=== PATIENT | female | born 1975 | race Caucasian/White ===

== ENCOUNTER 2018-07-17 12:05 | Emergency (ER) | payer MEDICAID ==
--- NOTE | 2018-07-17 12:17 | Emergency Department Record ---
History of Present Illness - General Chief Complaint: Abdominal Pain Stated Complaint: ABD PAIN Time Seen by Provider: 07/17/18 12:15 Source: Patient Mode of Arrival: Ambulatory Limitations: No limitations - History of Present Illness Initial Comments: The patient is here due to AP for the last 2 days. She was blowing her nose and felt a "pop" above her umbilicus and then pain since. Now she is having more pain when she sneezes and coughs and feels a defect in her abdominal wall. The patient has had a hx of an umbilical hernia repair in the same area as a child but no other abdominal surgeries. She has had no nausea, vomiting, or diarrhea and has been moving her bowels normally. MD Complaint: Abdominal pain Onset/Timin -: Days(s) Location: Periumbilical Radiation: None Migration to: No migration Severity: Mild Severity scale (1-10): 4 Quality: Other Consistency: Constant Improves With: Nothing Worsens With: Nothing Associated Symptoms: Denies other symptoms - Related Data Previous Rx's Medication Instructions Recorded Naproxen [Naprosyn] 500 mg PO BID #14 tablet. 07/17/18 Allergies Allergy/AdvReac Type Severity Reaction Status Date / Time Penicillins Allergy Intermediate SEIZURES Verified 07/17/18 12:14 diphenhydramine HCl Allergy Mild HIVES Verified 07/17/18 12:14 [From Benadryl] Travel Screening - Travel/Exposure Within Last 30 Days Have you traveled within the last 30 days?: No Review of Systems Constitutional: Denies: Chills, Fever Eyes: Denies: Eye discharge ENT: Denies: Congestion Respiratory: Denies: Cough, Dyspnea Past Medical History - SOCIAL HISTORY Smoking Status: Never smoker Alcohol Use: Occasional Drug Use: None - RESPIRATORY Hx Respiratory Disorders: No - CARDIOVASCULAR Hx Cardio Disorders: No - NEURO Hx Neuro Disorders: No - GI Hx GI Disorders: No - Hx Genitourinary Disorders: No - ENDOCRINE Hx Endocrine Disorders: No - MUSCULOSKELETAL Hx Musculoskeletal Disorders: No - PSYCH Hx Psych Problems: Yes Hx Anxiety: Yes Hx Depression: Yes - HEMATOLOGY/ONCOLOGY Hx Hematology/Oncology Disorders: Yes Hx Anemia: Yes Family Medical History Any Significant Family History?: No Physical Exam - General General Appearance: Alert, Oriented x3, Cooperative, No acute distress - Head Head exam: Atraumatic, Normocephalic, Normal inspection - Eye Eye exam: Normal appearance, PERRL - Neck Neck exam: Normal inspection, Full ROM. negative: Tenderness - Respiratory Respiratory exam: Normal lung sounds bilaterally. negative: Respiratory distress - Cardiovascular Cardiovascular Exam: Regular rate, Normal rhythm, Normal heart sounds - GI/Abdominal GI/Abdominal exam: Soft, Hernia (There is a very mildly tender umbilical hernia just above her umbilicus. There is no strangulation or incarceration.). negative: Normal bowel sounds, Guarding, Rebound, Rigid - Extremities Extremities exam: Normal inspection, Full ROM, Normal capillary refill. negative: Tenderness Course Vital Signs 07/17/18 12:12 Temperature 97.9 F Pulse Rate 92 H Respiratory 18 Rate Blood Pressure 153/99 Pulse Ox 99 - Reevaluation(s) Reevaluation #1: The patient is doing OK after the Toradol and still does have tenderness at the umbilical hernia site. There is no palpable incarceration but there is a fascial defect. I did discuss the plan to F/U with Dr. Soriano for further evaluation. I also did discuss the case with Dr. Patino and he does agree with the plan for referral. 07/17/18 14:34 Medical Decision Making - Data Complexity MDM Data: X-Ray Ordered and/or Reviewed - Lab Data Result diagrams: 07/17/18 12:30 07/17/18 12:30 - Radiology Data Radiology results: Report reviewed (CT: Neg for any acute findings: 3 small fat containing umbilical hernias. Incidental possible malrotation.) Disposition Disposition: Discharge Clinical Impression: Umbilical hernia Qualifiers: Obstruction and gangrene presence: without obstruction or gangrene Qualified Code(s): K42.9 - Umbilical hernia without obstruction or gangrene Disposition: Home, Self-Care Condition: (2) Stable Instructions: Umbilical Hernia (ED) Additional Instructions: Please see Dr. Soriano in the [facility] next week. Take the Naprosyn for pain. Return to the ER for any worsening symptoms, pain, fever, or vomiting. Prescriptions: Naproxen [Naprosyn] 500 mg PO BID #14 tablet. Referrals: [facility] [Provider Group] Forms: Patient Portal Access Time of Disposition: 13:36 Quality - Quality Measures Quality Measures: N/A - Blood Pressure Screening View Details: Yes Does Patient Have Any of the Following: No Blood Pressure Classification: Hypertensive Reading Systolic Measurement: 153 Diastolic Measurement: 99 Screening for High Blood Pressure: < First Hypertensive BP, F/U Documented > [ [id number]] First Hypertensive Follow-up Interventions: Referral to alternative/primary care provider.
[2018-07-17 12:37] LABS: BASO % 0.8 % (0-6); EOS % 3.3 % (0-6); GRAN % 64.8 % (47-80); HEMATOCRIT 35.5 % (35.0-47.0); HEMOGLOBIN 11.4 gm/dl (11.6-16.0); LYMPH % 22.8 % (16-45); MEAN CELL VOLUME 91.3 fl (81-97); MEAN CORPUSCULAR HEMOGLOBIN 29.3 pg (27-33); MEAN CORPUSCULAR HGB CONC 32.1 g/dl (32-36); MEAN PLATELET VOLUME 8.6 fl (7.4-10.4); MONO % 8.3 % (0-9); PLATELET COUNT 249 K/uL (130-400); RED BLOOD COUNT 3.89 M/uL (3.80-5.40); RED CELL DISTRIBUTION WIDTH 12.8 % (11.5-14.5); WHITE BLOOD COUNT W/O DIFF 5.1 K/uL (4.2-12.2)
[2018-07-17 12:47] LABS: BLOOD UREA NITROGEN 5 mg/dL (6-20); CREATININE 0.7 mg/dL (0.5-0.9); EST GLOMERULAR FILTRATION RATE > 60 mL/min
[2018-07-17 12:48] LABS: TOTAL PROTEIN 6.5 g/dL (6.6-8.7)
[2018-07-17 12:50] LABS: GLUCOSE,RANDOM 107 mg/dL (74-109)
[2018-07-17 12:52] LABS: ALB/GLOB RATIO 1.6 (1.1-1.8); ALKALINE PHOSPHATASE 55 U/L (35-104); ALT/SGPT 14 U/L (<33); AST/SGOT 14 U/L (10.0-35.0)
[2018-07-17] MEDS ORDERED: KETOROLAC 30 MG/ML VIAL IM ONE (13:13)
== END 2018-07-17 14:40 | disposition home or self-care (01) ==
LOC: ER 12:05
DX: K42.9 Umbilical hernia without obstruction or gangrene (principal)
CPT/HCPCS: 74176; 80053; 83690; 84703; 85025; 96372; 99283; 99284; J1885

== ENCOUNTER 2018-08-07 09:32 | Day surgery (SDC) | payer MEDICAID ==
[~2018-08-07 09:32] MED LIST: ACETAMINOPHEN 1,000 MG/100 ML BTL IV ONE; CLINDAMYCIN 600MG/50ML PREMIX 600 MG/50 ML BAG IVPB ONE
[2018-08-07] MEDS ORDERED: MIDAZOLAM HCL 2MG/2ML VIAL IV ONE (09:33)
[2018-08-07] MEDS ORDERED: SEVOFLURANE 250 ML INH ONE (09:33)
[2018-08-07] MEDS ORDERED: DEXAMETHASONE 4 MG/ML 1ML VIAL IVP ONE (09:33)
[2018-08-07] MEDS ORDERED: ONDANSETRON HCL IV 4 MG/2 ML VIAL IVP ONE (09:33)
[2018-08-07] MEDS ORDERED: PROPOFOL 10 MG/ML VIAL IV ONE (09:33)
[2018-08-07] MEDS ORDERED: HYDROCODONE/APAP 5/325MG TABLET PO ONE (09:33)
[2018-08-07] MEDS ORDERED: HYDROMORPHONE HCL 2 MG/ML VIAL IV ONE (09:33)
[2018-08-07] MEDS ORDERED: FENTANYL PF 100MCG/2ML VIAL IV ONE ×2 (09:33)
[2018-08-07] MEDS ORDERED: BUPIVACAINE 0.25% W/EPI MPF 30ML VIAL IVP ONE (09:33)
[2018-08-07 10:01] LABS: BASO % 0.5 % (0-6); EOS % 3.4 % (0-6); HEMATOCRIT 36.4 % (35.0-47.0); HEMOGLOBIN 11.4 gm/dl (11.6-16.0); LYMPH % 22.1 % (16-45); MEAN CELL VOLUME 91.7 fl (81-97); MEAN CORPUSCULAR HEMOGLOBIN 28.7 pg (27-33); MEAN CORPUSCULAR HGB CONC 31.3 g/dl (32-36); MEAN PLATELET VOLUME 8.6 fl (7.4-10.4); PLATELET COUNT 356 K/uL (130-400); RED BLOOD COUNT 3.97 M/uL (3.80-5.40); RED CELL DISTRIBUTION WIDTH 12.5 % (11.5-14.5); WHITE BLOOD COUNT W/O DIFF 5.9 K/uL (4.2-12.2)
[2018-08-07] MEDS ORDERED: RINGERS SOLUTION,LACTATED 200 ML IV ONE (11:13)
--- NOTE | 2018-08-07 13:30 | Operative Note ---
DATE OF SURGERY: 08/07/2018 Surgeon: Gustavo Soriano DO PREOPERATIVE DIAGNOSIS: Incarcerated umbilical hernia. POSTOPERATIVE DIAGNOSIS: Incarcerated umbilical hernia. OPERATION: Open umbilical herniorrhaphy with mesh. Indication: The patient is a 42-year-old female who presents with pain and bulging in her periumbilical region. She clearly had an incarcerated hernia on exam. We did discuss repair. Risks, benefits, and alternatives were discussed. Risks include bleeding, infection, acute or chronic pain, recurrence. She understood this fully. Thereafter, consent was signed and questions answered. PROCEDURE: The patient was taken to the operating room and placed in a supine position. General anesthesia was administered per the department of anesthesia. The patient's abdomen was prepped and draped in the sterile fashion. At this time, the periumbilical region was anesthetized with a total of 10 mL of 0.25% Sensorcaine with epinephrine. A 3 cm curvilinear supraumbilical incision was made. This was carried down to the anterior rectus fascia. The umbilical stalk was encircled and dissected free from underlying hernia sac. Clean circumferential fascial edges were obtained. The hernia sac was the amputated and passed off the field. The hernia measured just under a centimeter. At this time, a 4.[address] mesh was placed in the intraperitoneal position. Tails overlapped the fascia. The upper skirt was sutured to the anterior rectus fascia with 2-0 Vicryl in 4 spots. The skin was tacked down to the fascia with 3-0 Vicryl. The wound was closed with 3-0 and 4-0 Vicryl. She was taken to the recovery room in satisfactory condition. FINDINGS ON SURGERY: Incarcerated umbilical hernia repaired as above. CC: SONIA Spencer
== END 2018-08-07 12:05 | disposition home or self-care (01) ==
LOC: SUR 09:32
PROVIDERS: ATTEND Surgery
DX: K42.0 Umbilical hernia with obstruction, without gangrene (principal)
CPT/HCPCS: 49587; 00750; 85025; 81025; J3010; J1170; J2405; J7120